=== PATIENT | female | born 1980 | race Caucasian/White ===

== ENCOUNTER 2017-01-15 07:49 | Inpatient (IN) ==
[2017-01-15] MEDS ORDERED: Naloxone 0.4 MG/ML INJ IVP PRN (08:32)
[2017-01-15] MEDS ORDERED: Famotidine 20 MG/2 ML VIAL IVP PRN (08:32)
[2017-01-15] MEDS ORDERED: Ondansetron 4 MG/2 ML VIAL IVP PRN (08:32)
[2017-01-15] MEDS ORDERED: miSOPROStol 25 MCG TABLET VG PRN (08:37)
[2017-01-15] MEDS ORDERED: Penicillin G Potassium 5,000,000 UNIT in D5% in Water (Mini-Bag+) 100 ML IVPB ONE (08:39)
[2017-01-15] MEDS ORDERED: *HR* Nalbuphine 20 MG/ML AMPUL IVP PRN (08:59)
--- NOTE | 2017-01-15 09:05 | OB/GYN History & Physical ---
Date of Encounter: 01/15/17 Time of Encounter: 09:01 Assessment and Plan (1) 39 weeks gestation of Current visit: Yes Status: Acute (2) Elective induction of labor planned Current visit: Yes Status: Acute Admit to labor and delivery PCN for GBS Clear liquids Cytotec 50mcg po may have nuabain and epidural as desired Anticipate History of Present Illness Chief complaint: Induction of labor HPI: Ms. Johns is a 36 year old female presents for elective induction of labor. Uncomplicated course. Reports good movement, denies contractions , vaginal bleeding or leaking of fluid. Labs:O+, Rubella Immune, GBS+ all other serologies negative Past Med Surg Social Fam HX - Past Medical History Medical history: no medical history Psychiatric history: no psych history - Past Surgical History Surgical History: no surgical history - Social History Smoking Status: Never smoker Smokeless Tobacco Status: No Alcohol use: none Drug use: none - Family History Mother Adopted: No Living Status: Still Living Hx Family Cardiac Disorders: Yes (htn) Hx Family Respiratory Disorders: No Hx Family Cancer: No Hx Family GI Disorders: No Hx Family Genitourinary Disorders: No Hx Family Endocrine Disorder: No Hx Family Musculoskeletal Disorders: No Hx Family Neuromuscular Disorders: No Hx Family Neurologic Disorders: No Hx Family HEENT Disorders: No Hx Family Autoimmune Disorders: No Hx Family Reproductive Disorders: No Hx Family Psychosocial Disorders: No Hx Family Medical Disorders: No Obstetrical History - Pregnancies : 7 Para: 3 Term: 3 : 0 Ab's: 3 Livin Medications and Allergies Vit Calc,Iron,Folic [ Vitamins] 1 tab PO DAILY 01/15/17 [ History] 3 Allergy/AdvReac Type Severity Reaction Status Date / Time No Known Allergies Allergy Verified 01/15/17 08:31 Exam - Constitutional Constitutional: well developed, well nourished, no acute distress, average body habitus - Neck Neck exam: full ROM - Lungs Respiratory exam: CTAB - Cardiovascular Cardiovascular exam: RRR - Abdomen Abdomen: Present: bowel sounds normal, gravid, non tender - Extremities Extremities exam: normal capillary refill, normal inspection - Vulva Vulva: bilateral: normal - Vagina Vagina: Present: normal moisture - Cervix Dilation: 2 Effacement: 50 Station: -2 - Uterus Uterus exam: Present: normal size, normal contour - Anus/Rectum Anus/Rectum: Present: normal perianal skin Results All other labs normal. - VTE Reasons for not Prescribing Prophylaxis: Treatment not Indicated - Low risk for VTE
[2017-01-15 09:17] LABS: Basophils # 0.1 K/mcL (0.0-0.2); Basophils % 0.4 %; Eosinophils # 0.7 K/mcL (0.0-0.6); Eosinophils % 6.3 %; Hematocrit 33.5 % (35.3-44.9); Hemoglobin 11.6 g/dL (11.5-15.4); Immature Granulocytes % 0.7 % (0-4); Mean Corpuscular HGB Conc 34.6 g/dL (31.6-35.5); Mean Corpuscular Hemoglobin 31.7 pg (28.0-33.3); Mean Corpuscular Volume 91.5 fL (83.0-100.0); Mean Platelet Volume 9.3 fL (9.4-12.4); Monocytes # 0.8 K/mcL (0.0-1.3); Monocytes % 7.2 %; Neutrophils # 6.8 K/mcL (1.6-8.9); Platelet Count 274 K/mcL (140-400); Red Blood Count 3.66 M/mcL (3.82-4.97); Segmented Neutrophils % 59.4 %
[2017-01-15] MEDS: Ringers Solution, Lactated 1,000 ML IVC SCH ×2 (09:35→19:46)
[2017-01-15] MEDS: miSOPROStol 25 MCG TABLET PO PRN ×2 (09:36→13:44)
[2017-01-15] MEDS ORDERED: Penicillin G Potassium 2,500,000 UNIT in D5% in Water 100 ML IVPB SCH (12:30)
--- NOTE | 2017-01-15 13:04 | OB Labor Progress Note ---
Date of Encounter: 01/15/17 Time of Encounter: 13:02 Labor Progress Note - Subjective Subjective: Pt states feeling some pressure with contractions, but they are not uncomfortable at this time - Vital Signs Vital Signs: 124/77 - Heart Tones Heart Tones: 145/moderate/+accels/-decels - [place]: q8-10 - Plan Plan: 50mcg po cytotec for next dose PCN for GBS Will consider AROM when in regular contraction pattern Anticipate
[2017-01-15] MEDS ORDERED: Oxytocin 20 units/ LR 1000 mL 20 UNIT/1,000 ML BAG IVC SCH (18:00)
--- NOTE | 2017-01-15 18:22 | OB Labor Progress Note ---
Date of Encounter: 01/15/17 Time of Encounter: 18:20 Labor Progress Note - Subjective Subjective: Pt states still feels contractions but not painful - Cervix Cervix: 3/80/-2 - Heart Tones Heart Tones: 145/moderate/+accels/-decels - [place]: q4-6 - Plan Plan: Will start pitocin PCN for GBS Anticipate
--- NOTE | 2017-01-15 20:04 | OB Labor Progress Note ---
Date of Encounter: 01/15/17 Time of Encounter: 20:02 Labor Progress Note - Subjective Subjective: Pt states contractions are stronger, but does not want pain medicine at this time. - Cervix Cervix: 4/80/-2 - Heart Tones Heart Tones: 145/moderate/+accels/-decels - [place]: 3-5 - Interventions Interventions: AROM for clear fluid - Plan Plan: Continue to increase pitocin per policy PCN for GBS Anticipate
[2017-01-15] MEDS ORDERED: Epidural Premix (fent/bupiv) 110 ML EP SCH (20:30)
[2017-01-15] MEDS ORDERED: Epidural Premix (fent/bupiv) 110 ML EP ONE (20:33)
--- NOTE | 2017-01-15 21:23 | Anesthesia Evaluation PreOp ---
Date of Encounter: 01/15/17 Time of Encounter: 21:20 - Past History Cardiac History: Denies any Significant Hx Pulmonary History: Denies Any Significant HX [employer] History: Denies Any Significant HX Anesthesia History: No Prior Anesthetic Complications : Yes (39) Test: Positive Alcohol Use: none Drug use: none Medications and Allergies Vit Calc,Iron,Folic [ Vitamins] 1 tab PO DAILY 01/15/17 [ History] 3 Allergy/AdvReac Type Severity Reaction Status Date / Time No Known Allergies Allergy Verified 01/15/17 08:31 - Meds/Allergy Pre-op Review Medications Reviewed: Yes Allergies Reviewed: Yes Beta Blockers on Current Med List: No Anesthesia Results - Labs 01/15/17 08:58 Anesthesia Exam Height: 63 Weight: 62 NPO (# of Hours): [place] Pain Scale: 8 - HEENT Pupil (Motor): Pupils equal Mallampati: II Teeth: Normal Oral Opening: Greater than 3 - 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
--- NOTE | 2017-01-15 21:25 | Anesthesia Procedures ---
Date of Encounter: 01/15/17 Time of Encounter: 21:20 Procedures: Anesthesia - Epidural/Spinal Patient ID/Chart reviewed: Yes Patient examined: Yes OB Eval: Gestational age: 40 OB Eval: : 7 OB Eval: Hx Para: 3 OB Eval: Contractions: Non-stressed pattern Consent Obtained: Yes Supplemental Oxygen: None/Room Air Site Prep: Aseptic Technique, Sterile prep and drape, Povidone-Iodine 1% Patient position: upright Local Anesthetic: Lidocaine 1% Amount of Local Anesthetic used: 3 Touhy Needle Gauge: 18 Touhy Needle Depth (cm): 5 Catheter Depth at Skin (cm): 10 Test Dose (1.5% Lido + Epi): Volume given (mls): 3 Test Dose Result: Negative Infusion Med: 0.125% Bupivacaine w/ 2 mcg/ml Fentanyl Infusion Rate (mls/hr): [address]: Tegaderm, Tape Interspace Used: L3-L4 Loss of Resistance (SÁNCHEZ): Yes Blood: No CSF: No Paresthesia: No Vitals + FHT's: stable throughout see nursing notes
--- NOTE | 2017-01-15 22:24 | OB/GYN Procedure Note ---
Delivery - Delivery Date: 01/15/17 Provider: Danyell Marin Intrapartum events: none Delivery induction: AROM, oxytocin, misoprostol Delivery monitor: external FHT, external uterine Anesthesia: epidural Estimated Blood Loss: 100 - (s) Infant A Delivery Date: 01/15/17 Delivery Time: 21:56 Presentation: vertex Position: OA Route of delivery: Gender: Female Viability: Viable Pounds: 7 Ounces: 9 Weight Gram: 3440 kg at 1 minute: 8 at 5 mins: 9 Shoulder Dystocia: not encountered Specimens collected: cord blood Placenta: spontaneous Cord: nuchal cord, 3 umbilical vessels, delivered through nuchal - Repair Episiotomy: none Laceration Description: None - Complications Delivery complications: none Delivery comments: Induction of labor, progressed to complete, directed maternal bearing down efforts to of liveborn girl. Vertex delivered OA, nuchal cord noted, delivered through nuchal. Shoulders delivered after maternal repositioning, and body easily followed. placed on maternal abdomen and stimulated to cry, APGARS 8/9 Placenta delivered spontaneously (david). Perineum intact. EBL 100. Mother and left skin to skin in recovery. - Disposition Mom disposition: stable in LDR [place] disposition: stable in LDR
[2017-01-16] MEDS ORDERED: Benzocaine/Menthol 56 GM AEROSOL SPRAY TP PRN (00:20)
[2017-01-16] MEDS ORDERED: Oxytocin 20 units/ LR 1000 mL 20 UNIT/1,000 ML BAG IVC SCH (00:20)
[2017-01-16] MEDS ORDERED: Ibuprofen 600 MG TABLET PO PRN (00:20)
[2017-01-16] MEDS ORDERED: Acetaminophen 325 MG TABLET PO PRN (00:20)
[2017-01-16] MEDS ORDERED: Prenatal Vit/FA 1 EACH TABLET PO SCH (09:00)
--- NOTE | 2017-01-16 09:22 | Discharge Summary ---
Date of Encounter: 01/16/17 Time of Encounter: 09:20 - Discharge Diagnosis (1) Vaginal delivery Priority: Primary Status: Acute Comments: Patient meeting milestones. She is requesting discharge - Discharge Medications Prescriptions: Ibuprofen [Motrin] 600 mg PO Q6HR PRN #60 tab PRN Reason: Cramping Home Medications: Vit Calc,Iron,Folic [ Vitamins] 1 tab PO DAILY 01/15/17 [ History] Ibuprofen [Motrin] 600 mg PO Q6HR PRN #60 tab 01/16/17 [Rx] Allergies/Adverse Reactions: 3 Allergy/AdvReac Type Severity Reaction Status Date / Time No Known Allergies Allergy Verified 01/15/17 08:31 Data Procedures and tests throughout hospitalization: Laboratory Tests 01/15/17 08:58 WBC 11.4 H RBC 3.66 L Hgb 11.6 Hct 33.5 L MCV 91.5 MCH 31.7 MCHC 34.6 RDW 13.0 Plt Count 274 MPV 9.3 L Immature Gran % 0.7 Seg Neutrophils % 59.4 Lymphocytes % 26.0 Monocytes % 7.2 Eosinophils % 6.3 Basophils % 0.4 Neutrophils # 6.8 Lymphocytes # 3.0 Monocytes # 0.8 Eosinophils # 0.7 H Basophils # 0.1 Date of admission: 01/15/17 07:49 Primary care physician: PCP NONE Discharging clinician: Leigh Munoz date of discharge: 01/16/17 - Patient Status Disposition: Home, Self-Care Condition: Good Functional capacity at discharge: independent ambulation Overall status at discharge: patient is progressing back to baseline - Discharge Instructions Follow Up With: NONE,PCP [Primary Care Provider] - - Diet and Activity Activity: increase activity as tolerated, resume usual activities as tolerated Hospital Course Procedures: Reason for admission: induction of labor Delivery: Episiotomy: none Other procedures: none complications: none Discharge diagnosis: IUP at term delivered [place] baby: female Hospital course: Uncomplicated, meeting milestones Time Attestation: Total time spent providing and/or coordinating discharge services: Time Spent: Less than 30 minutes Exam - Constitutional Vitals: Temp Pulse Resp BP Pulse Ox 98.5 F 55 16 116/72 96 01/16/17 07:40 01/16/17 07:40 01/16/17 07:40 01/16/17 07:40 01/16/17 02:32 General appearance IM: A&O X 3, pleasant, no acute distress - Respiratory Respiratory exam: Absent: respiratory distress - Cardiovascular Cardiovascular exam IM: Absent: irregular rhythm - GI/Abdominal GI/Abdominal exam IM: normal bowel sounds, soft, no peritoneal signs - Rectal Rectal exam: deferred - Uterine Tone: Firm Uterus Position: At Umbilicus, Midline - Extremities Exam Extremities exam IM: Present: normal inspection, warm. Absent: calf tenderness , pedal edema - Neurological Exam Neurological exam: alert, no focal deficits
[2017-01-16 16:03] VITALS: BP 119/80
== END 2017-01-16 23:40 | disposition home or self-care (01) | DRG 560 ==
LOC: 1NENULAB 07:49 → 1NENUOBS 01-16 00:02
PROVIDERS: ADMIT Student in an Organized Health Care Education/Training Program; ATTEND Student in an Organized Health Care Education/Training Program